=== PATIENT | female | born 1990 | race Caucasian/White ===

== ENCOUNTER → 2016-12-30 | Outpatient (CLI) | payer BC ==
[~2016-12-30] VITALS: Ht 177.8 cm; Wt 102.0 kg
[~2016-12-30] MED LIST: PRENATAL TABLE1 EAC3 PO
[2016-12-30 14:10] VITALS: BP 143/87
== END | disposition home or self-care (01) ==
LOC: IVINF 13:51
DX: O26.892 Other specified pregnancy related conditions, second trimester (principal); Z3A.28 28 weeks gestation of pregnancy; Z67.91 Unspecified blood type, Rh negative
CPT/HCPCS: 96372; J2790

== ENCOUNTER 2017-03-28 15:53 | Inpatient (IN) | payer BC ==
[~2017-03-28] VITALS: Ht 180.3 cm; Wt 110.9 kg
[2017-03-28 16:12] VITALS: BP 120/79
[2017-03-28 18:19] LABS: EOSINOPHIL (%) 1.3 % (0-5); EOSINOPHIL COUNT 0.1 K/uL (0-0.3); HEMATOCRIT 39.1 % (36.0-46.0); IMMATURE GRANULOCYTE (%) 0.6 % (0.0-0.7); IMMATURE GRANULOCYTE COUNT 0.1 K/uL; INSTRUMENT ABS NEUTROPHIL CT 7.3 K/uL; LYMPHOCYTE COUNT 2.1 K/uL (1.0-2.8); MCH 29.1 PG (29.0-34.0); MCHC 34.5 G/DL (30.0-36.0); MCV 84.3 FL (83-99); MONOCYTE (%) 7.2 % (3-12); MONOCYTE COUNT 0.8 K/uL (0-0.8); NEUTROPHIL COUNT 7.3 K/uL (1.8-6.4); PLATELET COUNT 187 K/uL (156-360); RBC DIS.WIDTH-CV 13.2 % (11.8-14.6); RED BLOOD COUNT 4.64 M/uL (3.80-5.20); WHITE BLOOD COUNT 10.4 K/uL (4.1-10.2)
[2017-03-28 20:01] VITALS: BP 124/78
[2017-03-28 20:28] VITALS: BP 119/78
[2017-03-28 20:58] VITALS: BP 129/79
[2017-03-28 22:18] VITALS: BP 106/62
[2017-03-28 23:18] VITALS: BP 98/65
[2017-03-29] VITALS (61 sets, daily range): BP systolic 103–164; BP diastolic 53–99
[2017-03-30] VITALS (9 sets, daily range): BP systolic 90–132; BP diastolic 54–81
[2017-03-30 06:08] LABS: BASE EXCESS -3.8 mEq/L (-3 to +3); BICARBONATE 22.1 mEq/L (22-26); CARBOXY HGB 1.1 % (0-5); COMMENTS - BLOOD GASES C+; METHEMOGLOBIN 1.7 % (0-1.5); PCO2 42 mm Hg (35-45); PO2 < 28 mm Hg (80-100); pH 7.33 (7.35-7.45)
[2017-03-30] MEDS ORDERED: IBUPROFEN800 MG PO (06:41)
[2017-03-30] MEDS ORDERED: DOCUSATE SODIU100 MG PO (06:41)
[2017-03-30] MEDS ORDERED: ENDOCET 5-3251 EACH PO (06:41)
[2017-03-30 12:17] LABS: EOSINOPHIL (%) 0 % (0-5); HEMATOCRIT 37.7 % (36.0-46.0); IMMATURE GRANULOCYTE (%) 0.4 % (0.0-0.7); IMMATURE GRANULOCYTE COUNT 0.1 K/uL; INSTRUMENT ABS NEUTROPHIL CT 19.4 K/uL; LYMPHOCYTE COUNT 1.5 K/uL (1.0-2.8); MCH 27.5 PG (29.0-34.0); MCHC 32.9 G/DL (30.0-36.0); MCV 83.6 FL (83-99); MEAN PLAT.VOLUME 12.8 uM^3 (9.5-12.4); MONOCYTE (%) 7.9 % (3-12); MONOCYTE COUNT 1.8 K/uL (0-0.8); NEUTROPHIL COUNT 19.4 K/uL (1.8-6.4); PLATELET COUNT 169 K/uL (156-360); RBC DIS.WIDTH-SD 39.8 % (39-53); RED BLOOD COUNT 4.51 M/uL (3.80-5.20); WHITE BLOOD COUNT 22.8 K/uL (4.1-10.2)
[2017-03-31 02:22] VITALS: BP 115/61
[2017-03-31 06:53] LABS: EOSINOPHIL (%) 0.4 % (0-5); EOSINOPHIL COUNT 0.1 K/uL (0-0.3); IMMATURE GRANULOCYTE (%) 0.5 % (0.0-0.7); IMMATURE GRANULOCYTE COUNT 0.1 K/uL; INSTRUMENT ABS NEUTROPHIL CT 12.9 K/uL; LYMPHOCYTE COUNT 2.2 K/uL (1.0-2.8); MCH 29.2 PG (29.0-34.0); MEAN PLAT.VOLUME 12.8 uM^3 (9.5-12.4); MONOCYTE (%) 7.9 % (3-12); MONOCYTE COUNT 1.3 K/uL (0-0.8); NEUTROPHIL (%) 77.9 % (45-76); NEUTROPHIL COUNT 12.9 K/uL (1.8-6.4); PLATELET COUNT 130 K/uL (156-360); RBC DIS.WIDTH-CV 13.4 % (11.8-14.6); RBC DIS.WIDTH-SD 41.3 % (39-53); WHITE BLOOD COUNT 16.6 K/uL (4.1-10.2)
[2017-03-31 06:55] LABS: RED BLOOD COUNT 3.49 M/uL (3.80-5.20)
[2017-03-31 07:27] VITALS: BP 113/63
[2017-03-31 10:46] VITALS: BP 114/60
[2017-03-31 14:57] VITALS: BP 116/70
[2017-03-31 19:00] VITALS: BP 111/62
[2017-03-31 22:25] VITALS: BP 132/68
[2017-04-01 02:59] VITALS: BP 106/60
[2017-04-01 07:50] VITALS: BP 129/71
== END 2017-04-01 13:40 | disposition home or self-care (01) | DRG 766 ==
LOC: LDRP-OP 15:53 → 2WEST 15:56 → LDRP-OP 04-17 12:07
PROVIDERS: Midwife; Obstetrics & Gynecology
PROC: 3E0P7VZ Introduction of Hormone into Female Reproductive, Via Natural or Artificial Opening (ICD-10-PCS; principal; 2017-03-28)
PROC: 3E0S3NZ Introduction of Analgesics, Hypnotics, Sedatives into Epidural Space, Percutaneous Approach (ICD-10-PCS; 2017-03-29)
PROC: 00HU33Z Insertion of Infusion Device into Spinal Canal, Percutaneous Approach (ICD-10-PCS; 2017-03-29)
PROC: 10907ZC Drainage of Amniotic Fluid, Therapeutic from Products of Conception, Via Natural or Artificial Opening (ICD-10-PCS; 2017-03-29)
PROC: 10D00Z1 Extraction of Products of Conception, Low, Open Approach (ICD-10-PCS; 2017-03-30)
DX: O48.0 Post-term pregnancy (principal); O76 Abnormality in fetal heart rate and rhythm complicating labor and delivery; O77.0 Labor and delivery complicated by meconium in amniotic fluid; O33.9 Maternal care for disproportion, unspecified; Z3A.42 42 weeks gestation of pregnancy; Z37.0 Single live birth; O62.2 Other uterine inertia; Z3A.41 41 weeks gestation of pregnancy; O99.214 Obesity complicating childbirth; E66.9 Obesity, unspecified; Z68.31 Body mass index [BMI] 31.0-31.9, adult
CPT/HCPCS: 36600; 82803; 83030; 85025; 86850; 86870; 86900; 86901; 86905; 86920; 88307; 90686; G0378; J0456; J0690; J2210; J2274; J2405; J2590; J2790; J3010; J7120